=== PATIENT | male | born 1965 | race Caucasian/White ===

== ENCOUNTER 2024-08-04 23:20 | Inpatient (IN) | payer OTHER, SELFPAY ==
[2024-08-04 17:43] VITALS: BMI 28.9
[2024-08-04 17:48] VITALS: BP 152/105
[2024-08-04 18:00] VITALS: BP 139/89
--- NOTE | 2024-08-04 18:03 | ED.GENMED ---
History of Present Illness
<Eleonora Hamilton PA-C - Last Filed: 08/04/24 23:29>
General
Chief Complaint: Abdominal Symptoms
Source: patient
Exam Limitations: none
Time Seen by Provider: 08/04/24 17:57
Nursing documentation reviewed up to this point in time: agreed with
History of Present Illness
History of Present Illness:
59-year-old male with history diverticulitis s/p partial bowel resection who presents the emergency department for evaluation of lower abdominal pain. Patient states symptoms initially started on Friday night. He describes a bloating sensation
which was initially localized around his umbilicus. He now reports a constant pain in his lower abdomen, somewhat more on the right side. Patient states his bowel habits seem slightly different over the past few days including a few days where he
felt constipated although now he reports looser stool. No black stool or bloody stool. He also states that he had a temperature of 100.9/101 F on Friday with chills. Today�patient states his urine was 'rust colored '.
He denies any radiation of pain around to his back. He denies any associated nausea, vomiting. No chest pain or shortness of breath.
Patient has been taking ibuprofen at home with some improvement temporarily.
Patient states that a few years ago he was seen in the emergency department for lower abdominal pain, diagnosed with appendicitis and taken to the operating room where they discovered that he also had diverticulitis and performed a partial bowel
resection.
Past History
<Eleonora Hamilton PA-C - Last Filed: 08/04/24 23:29>
Past History
ED Past Medical History: Other (kidney stone) and Other (Possible cluster headaches)
ED Past Surgical History: Bowel resection
Social History
Personal:
Living: with family
Employment: Employed
Review of Systems
<Eleonora Hamilton PA-C - Last Filed: 08/04/24 23:29>
Review of Systems
Allergies reviewed?: Yes
All Other Systems: ROS reviewed and negative except as documented in HPI and ROS
Phy Exam
<Eleonora Hamilton PA-C - Last Filed: 08/04/24 23:29>
Physical Exam
Physical Exam:
Vitals: Hypertensive on arrival, somewhat improved by my assessment.
General: Patient is well appearing, no acute distress. Nontoxic appearing
Skin: Warm and dry, no rashes or lesions
Head: Normocephalic, atraumatic
Eyes: Sclera nonicteric.
Throat: Protecting airway
Neck: Normal ROM, no cervical spine tenderness, no meningismus
Cardiac: Regular rate and rhythm, no murmurs.
Pulm: Normal respiratory effort, no wheezes, rales, rhonchi heard on exam
.
Abdomen: Abdomen soft. Mild tenderness in suprapubic region without rebound tenderness or guarding. No palpable masses. No CVA tenderness.
Extremities: Warm and well-perfused.
Neuro: AAOx3. Grossly intact.
Psychiatric: Normal affect.
Course
<Eleonora Hamilton PA-C - Last Filed: 08/04/24 23:29>
Orders/Labs/Results
Orders:
Orders
08/04/24 18:15
CT Abd/pel W Iv And Oral Contr Urgent
Comment: hx appendicitis, diverticulitis s/p bowel resectio
Reason For Exam: Lower abdominal pain, +fever
0.9% Sodium Chloride 1000 ml [Nss] 1,000 ml IV BOLUS
Iohexol [Omnipaque] See Protocol PO NOW STA
08/04/24 18:20
Complete Blood Count/With Diff Urgent
Comprehensive Metabolic Panel Urgent
Lactic Acid Q4H
Comment: CANCEL 2nd LACTIC ACID IF 1st LACTIC ACID IS LESS THAN 2
Lipase Urgent
Urinalysis Reflex To Culture Urgent
Date Specimen was Collected: 08/04/24
Time Specimen was Collected: 18:00
Urine Microscopic Reflex Cult Urgent
08/04/24 21:41
LevoFLOXacin 750 MG/150 ML [Levaquin] 750 mg in 150 ml IV NOW
MetroNIDAZOLE 500 MG/100 ML [Flagyl 500 mg] 100 ml IV NOW
08/04/24 22:14
Admit/Transfer Patient As Directed
Co-Sign Provider:
Level of Care: Inpatient admission
Assign to:: Medical/Surgical
Physician / Group: cooper
Diagnosis: divrticulitis
Reason for Hospitalization: Diverticulitis
Expected length of stay greater than two midnights?: Yes
ELOS- Estimated Length of Stay in days: 3
I certify the patient meets the requirements for IP care: Yes
PRN Pain Medication Management As Directed
May give lesser potent ordered pain med per pt: Yes
preference::
Protocol:: Medication orders for pain may be administered in a
manner that supports deferring to patient preference
when the pt is:
- Requesting an ordered lesser potent pain medication.
Least to most potent pain medications are defined
as: acetaminophen < NSAID < tramadol < opioids
(morphine, oxycodone, hydromorphone).
- Requesting a lesser dose of the same medication IF
ORDERED.
- Requesting a less intrusive route of administration
if both routes are prescribed by the provider (PO <
IV).
08/04/24 22:15
Code Status As Directed
Resuscitation Status: Full Code
08/04/24 22:22
SURGICAL CONSULT Routine
Consulting Provider: Khanh Sotelo
Was physician already notified: No
Reason for consult: diverticulitis
08/04/24 22:23
Consult Notification Routine
Specialty to Notify: Surgical
Date consulting provider notified: 08/04/24
Time consulting provider notified: 22:24
Notified:: Service
08/04/24 22:32
DX Deep Vein Thrombosis Video Routine
08/04/24 23:00
Flush (0.9% Sodium Chloride) [Flush (Nss)] See Dose Instructions IV PER PROTOCOL
08/05/24 18:00
Enoxaparin Sodium [Lovenox] 40 mg SC QPM
Abnormal Lab Results
08/04/24
18:20
RBC 4.52 L 10^6/uL
(4.70-6.10)
MCH 31.4 H pg
(27.0-31.0)
Absolute Monos (auto) 1.2 H 10^3/uL
(0.1-0.6)
Lymphocytes % 20.3 L %
(20.5-51.1)
Monocytes % 13.1 H %
(1.7-9.3)
Carbon Dioxide 31 H mmol/L
(22-30)
Glucose 123 H mg/dl
(70-99)
Ur Occult Blood Reflex 1+ A
(Negative)
Urine Urobilinogen 2+ A
(Neg - 1+)
Urine RBC 3-6 A /HPF
(0-2)
Urine Bacteria (Reflex) Few A
(Negative)
Urine Albumin (Reflex) 2+ A
(Neg - Trace)
08/04/24 18:20
08/04/24 18:20
Vital Signs
Initial and Last Documented VS:
Initial Vital Signs
Temp Pulse Resp BP Pulse Ox
98.6 F 81 20 152/105 98
08/04/24 17:48 08/04/24 17:48 08/04/24 17:48 08/04/24 17:48 08/04/24 17:48
Last Documented Vital Signs
Temp Pulse Resp BP Pulse Ox
98.6 F 84 20 139/70 99
08/04/24 17:48 08/04/24 20:00 08/04/24 20:00 08/04/24 20:00 08/04/24 20:00
<Richardson Herrera PA-C - Last Filed: 08/04/24 22:02>
Orders/Labs/Results
Orders:
Orders
08/04/24 18:15
CT Abd/pel W Iv And Oral Contr Urgent
Comment: hx appendicitis, diverticulitis s/p bowel resectio
Reason For Exam: Lower abdominal pain, +fever
0.9% Sodium Chloride 1000 ml [Nss] 1,000 ml IV BOLUS
Iohexol [Omnipaque] See Protocol PO NOW STA
08/04/24 18:20
Complete Blood Count/With Diff Urgent
Comprehensive Metabolic Panel Urgent
Lactic Acid Q4H
Comment: CANCEL 2nd LACTIC ACID IF 1st LACTIC ACID IS LESS THAN 2
Lipase Urgent
Urinalysis Reflex To Culture Urgent
Date Specimen was Collected: 08/04/24
Time Specimen was Collected: 18:00
Urine Microscopic Reflex Cult Urgent
08/04/24 21:41
LevoFLOXacin 750 MG/150 ML [Levaquin] 750 mg in 150 ml IV NOW
MetroNIDAZOLE 500 MG/100 ML [Flagyl 500 mg] 100 ml IV NOW
08/04/24 22:14
Admit/Transfer Patient As Directed
Co-Sign Provider:
Level of Care: Inpatient admission
Assign to:: Medical/Surgical
Physician / Group: cooper
Diagnosis: divrticulitis
Reason for Hospitalization: Diverticulitis
Expected length of stay greater than two midnights?: Yes
ELOS- Estimated Length of Stay in days: 3
I certify the patient meets the requirements for IP care: Yes
PRN Pain Medication Management As Directed
May give lesser potent ordered pain med per pt: Yes
preference::
Protocol:: Medication orders for pain may be administered in a
manner that supports deferring to patient preference
when the pt is:
- Requesting an ordered lesser potent pain medication.
Least to most potent pain medications are defined
as: acetaminophen < NSAID < tramadol < opioids
(morphine, oxycodone, hydromorphone).
- Requesting a lesser dose of the same medication IF
ORDERED.
- Requesting a less intrusive route of administration
if both routes are prescribed by the provider (PO <
IV).
08/04/24 22:15
Code Status As Directed
Resuscitation Status: Full Code
08/04/24 22:22
SURGICAL CONSULT Routine
Consulting Provider: Khanh Sotelo
Was physician already notified: No
Reason for consult: diverticulitis
08/04/24 22:23
Consult Notification Routine
Specialty to Notify: Surgical
Date consulting provider notified: 08/04/24
Time consulting provider notified: 22:24
Notified:: Service
08/04/24 22:32
DX Deep Vein Thrombosis Video Routine
08/04/24 23:00
Flush (0.9% Sodium Chloride) [Flush (Nss)] See Dose Instructions IV PER PROTOCOL
08/05/24 18:00
Enoxaparin Sodium [Lovenox] 40 mg SC QPM
Abnormal Lab Results
08/04/24
18:20
RBC 4.52 L 10^6/uL
(4.70-6.10)
MCH 31.4 H pg
(27.0-31.0)
Absolute Monos (auto) 1.2 H 10^3/uL
(0.1-0.6)
Lymphocytes % 20.3 L %
(20.5-51.1)
Monocytes % 13.1 H %
(1.7-9.3)
Carbon Dioxide 31 H mmol/L
(22-30)
Glucose 123 H mg/dl
(70-99)
Ur Occult Blood Reflex 1+ A
(Negative)
Urine Urobilinogen 2+ A
(Neg - 1+)
Urine RBC 3-6 A /HPF
(0-2)
Urine Bacteria (Reflex) Few A
(Negative)
Urine Albumin (Reflex) 2+ A
(Neg - Trace)
08/04/24 18:20
08/04/24 18:20
Vital Signs
Initial and Last Documented VS:
Initial Vital Signs
Temp Pulse Resp BP Pulse Ox
98.6 F 81 20 152/105 98
08/04/24 17:48 08/04/24 17:48 08/04/24 17:48 08/04/24 17:48 08/04/24 17:48
Last Documented Vital Signs
Temp Pulse Resp BP Pulse Ox
98.6 F 84 20 139/70 99
08/04/24 17:48 08/04/24 20:00 08/04/24 20:00 08/04/24 20:00 08/04/24 20:00
<Eleonora Hamilton PA-C - Last Filed: 08/04/24 23:29>
MDM/Problems Addressed
Differential Diagnosis Includes:
Not limited to: Diverticulitis, cystitis, pyelonephritis, incarcerated hernia, bowel obstruction, anastomotic leak, etc.
MDM/Problems Addressed:
59-year-old male with 3 days of lower abdominal discomfort associated with fever, chills, loose stool. He did notice rust colored urine this morning. Denies associated nausea/vomiting, dysuria. No radiation of pain to back. Patient hypertensive
on arrival, otherwise with stable vital signs. He is afebrile. Physical exam as above. Differential broad although given history of diverticulitis s/p partial bowel resection�could be another acute diverticulitis flare. Feel
cystitis/pyelonephritis less likely. Physical exam less consistent with gallbladder etiology. Will check basic labs, urinalysis, CT scan abdomen/pelvis with p.o. and IV contrast to better evaluation. Patient declines analgesia at this time. Will
give IV fluids.
Update: Labs reviewed. No leukocytosis. Chemistry without clinically significant abnormalities. Lactic acid normal. Urine with few RBCs, 2+ urobilinogen. CT scan pending.
Case signed out to Alberto Herrera PA-C pending CT report.
Chronic conditions affecting care:
History of diverticulitis s/p partial bowel resection
Acute Exacerbation and/or Progression of Chronic Illness:
Acute sigmoid diverticulitis
<Eleonora Hamilton PA-C - Last Filed: 08/04/24 23:29>
*Radiology
Radiology exam reviewed: radiology read reviewed
*Pulse Oximetry
Patient hypoxic: no
*EKG
Interpreted by ED Provider?: NA
*Recycling Collections Driver Interpretation
Rate: Recycling Collections Driver- N/A
*Critical Care Note
Total Time (30-74mins, 75-104mins- exclusive of procedures): Not Applicable
<Richardson Herrera PA-C - Last Filed: 08/04/24 22:02>
Update Note
Update Note:
Took patient in signout, CT shows contained microperforation with diverticulitis. Will admit on IV antibiotics. Ordered Levaquin and metronidazole due to allergies
ED Attending Note
<Eleonora Hamilton PA-C - Last Filed: 08/04/24 23:29>
-
Portions of this chart may have been created with voice recognition software.� Occasional wrong word or��sound alike� substitutions may have occurred due to the inherent limitations of voice recognition software.
Discharge Plan
Departure
Patient Disposition: Admit
Date of Disposition: 08/04/24
Time of Disposition: 22:02
Admit to: Med/Surg
Presentation/result/management discussed w/ accepting MD/DO: Hospitalist
Discharge Problem:
Diverticulitis of colon with perforation
Interventions
Interventions:
*Risk Screen - Suicide Last Done: 08/04/24 17:48
*General Assessment Last Done: 08/04/24 18:25
*Neglect/Abuse Screening Last Done: 08/04/24 18:25
*ED- Fall Risk Assessment Last Done: 08/04/24 18:25
*Nursing Disposition Last Done: 08/04/24 23:13
DK-Qinilb-Rdcsutzvrb Assessment Last Done: 08/04/24 18:25
Discharge Date and Time
Discharge Date/Time: 08/04/24 23:14
[2024-08-04 18:28] LABS: Urine Albumin 2+ (Neg - Trace); Urine Bilirubin Negative (Negative); Urine Character Clear (Clear); Urine Color Yellow; Urine Glucose Negative (Negative); Urine Ketone Negative (Negative); Urine Leukocyte Negative (Negative); Urine Nitrite Negative (Negative); Urine Occult Blood 1+ (Negative); Urine Urobilinogen 2+ (Neg - 1+)
[2024-08-04 18:30] LABS: % Basophils 0.5 % (0-2); % Eosinophils 1.7 % (0-6); % Immature Granulocytes 0.3 % (0-0.5); % Lymphocytes 20.3 % (20.5-51.1); % Monocytes 13.1 % (1.7-9.3); % Neutrophils 64.1 % (42.2-75.2); Absolute Eosinophils 0.2 10^3/uL (0-0.7); Absolute Lymphocytes 1.8 10^3/uL (1.2-3.4); Absolute Monocytes 1.2 10^3/uL (0.1-0.6); Absolute Neutrophils 5.6 10^3/uL (1.4-6.5); Hematocrit 42.1 % (39.0-52.0); Hemoglobin 14.2 g/dL (13.0-18.0); Mean Corp Hgb Conc. 33.7 g/dL (33.0-37.0); Mean Corpuscular Hgb 31.4 pg (27.0-31.0); Mean Corpuscular Volume 93.1 fL (80.0-94.0); Mean Platelet Volume 10.4 fL (7.4-10.4); Nucleated Red Blood Cells % 0 % (-); Platelet Count 189 10^3/uL (130-400); Red Blood Cell Count 4.52 10^6/uL (4.70-6.10); Red Cell Dist. Width 12.5 % (11.5-14.5); White Blood Cell Count 8.8 10^3/uL (4.8-10.8)
[2024-08-04] MEDS: OMNIPAQUE 50 ML PO (18:30)
[2024-08-04] MEDS: NSS 1000 IV (18:30)
[2024-08-04 18:39] LABS: Lactic Acid 1.1 mmol/L (0.7-2.0)
[2024-08-04 18:44] LABS: Urine Calcium Oxalate Crystals Present; Urine Mucus Moderate
[2024-08-04 18:45] LABS: Urine Bacteria Few (Negative); Urine White Cell 0-2 /HPF (0-5)
[2024-08-04 18:47] LABS: ALT (SGPT) 25 U/L (0-50); AST (SGOT) 23 U/L (17-59); Albumin 3.9 g/dl (3.5-5.0); Alkaline Phosphatase 87 U/L (38-126); Blood Urea Nitrogen 19 mg/dl (9-20); Calcium 9.3 mg/dl (8.4-10.2); Carbon Dioxide 31 mmol/L (22-30); Chloride 104 mmol/L (98-107); Estimated Creatinine Clearance 77 ml/min; Glucose 123 mg/dl (70-99); Lipase 53 U/L (23-300); Potassium 3.9 mmol/L (3.5-5.1); Sodium 140 mmol/L (135-145); Total Bilirubin 0.6 mg/dl (0.2-1.3); Total Protein 6.9 g/dl (6.3-8.2); eGFR > 60.00
[2024-08-04 20:00] VITALS: BP 139/70
[2024-08-04] MEDS: FLAGYL 500 MG 100 IV (21:50)
[2024-08-04] MEDS: LEVAQUIN 150 IV (21:51)
--- NOTE | 2024-08-04 21:56 | HPS.HSE ---
Family Physician
-
Family Physician: Fermin Fowler
Chief Complaint
-
right sided abdominal pain
History of Present Illness
59-year-old male with history diverticulitis s/p partial bowel resection who presents the emergency department for evaluation of right sided lower abdominal pain since Friday night. patient stated poor appetite. stated loose stool. denied
constipation, nausea and vomiting. yesterday he felt feverish.his temperature was 100.9. he took Motrin last night and today. No chest pain or shortness of breath.denied MARIE, dizzy or syncope.denied dysuria or hematuria.
CT with diverticulitis. Patient received Levaquin and Flagyl. Admitted for further management.
Medical History
Past Medical History
Past Medical History: Reports Other
Additional Past Medical History:
Headache
Diverticulitis
Past Surgical History: Reports Other
Additional Past Surgical History:
Appendectomy
Partial bowel resection
Social History
Tobacco: Non-smoker
Alcohol: Occasional
Drug: None
Personal:
Living: With Family
Family History
Family History: Not pertinent
Allergies / Home Medications
Allergies reflects when Allergies were last updated in [facility].
Home Medications with original date entered in [facility]
Allergy/Medication List:
Allergies
Allergy/AdvReac Type Severity Reaction Status Date / Time
Cephalosporins Allergy Unknown Verified 08/04/24 17:58
penicillin G Allergy Unknown Verified 08/04/24 17:48
Penicillins Allergy Unknown Verified 08/04/24 17:48
Home Medications
sumatriptan succinate 100 mg tablet (Imitrex) 100 mg PO PRN PRN migraine 02/13/19
verapamil 120 mg tablet,extended release 120 mg PO DAILY 02/13/19
Review of Systems
-
Constitutional: Reports No Symptoms
EENT: Reports No Symptoms
Respiratory: Reports No Symptoms
Cardiac: Reports No Symptoms
Abdomen/GI: Reports Abdominal Pain and Diarrhea
: Reports No Symptoms
Musculoskeletal: Reports No Symptoms
Skin: Reports No Symptoms
Neurological: Reports No Symptoms
Endocrine: Reports No Symptoms
Hematologic/Lymphatic: Reports No Symptoms
Psych: Reports No Symptoms
Physical Exam
Vital Signs
Vital Signs
Temp Pulse Resp BP Pulse Ox
98.6 F 84 20 139/70 99
08/04/24 17:48 08/04/24 20:00 08/04/24 20:00 08/04/24 20:00 08/04/24 20:00
Physical Exam
General: Well Developed, Well Nourished and No Apparent Distress
HEENT: NormoCephalic, Moist mucous membranes and Atraumatic
Respiratory: Clear
Cardiac: S1/S2 and Regular Rhythm; No Murmur or Rub
GI: Soft, Non Tender, Non Distended and Normal Bowel Sounds; No Organomegaly
Rectal: Deferred by Provider
Musculoskeletal: No Clubbing, No Cyanosis and No Edema
Skin: No Rash
Neuro: AO x 3 and Nonfocal/grossly intact
Psych: Calm
Laboratory Results
-
08/04/24 18:20
08/04/24 18:20
Laboratory Results
Lactic Acid Cancelled 08/04/24 22:15
Total Bilirubin 0.6 mg/dl (0.2-1.3) 08/04/24 18:20
AST 23 U/L (17-59) 08/04/24 18:20
ALT 25 U/L (0-50) 08/04/24 18:20
Alkaline Phosphatase 87 U/L (38-126) 08/04/24 18:20
Lipase 53 U/L (23-300) 08/04/24 18:20
Data Reviewed
-
CT Scan: Report Reviewed by me
Lab Data: Labs Reviewed by me
Impression/Plan
-
# Diverticulitis
- CT abdomen pelvis with impression CT findings compatible with diverticulitis involving the sigmoid colon in the left anterior pelvis. There are small foci of contained extraluminal air in this region. No evidence of free intraperitoneal air
elsewhere within the abdomen or pelvis. There is no evidence for a drainable abscess collection.No evidence for bowel obstruction.Small to moderate-sized central hiatal hernia.Cholelithiasis. There are no CT findings to suggest acute cholecystitis.
No evidence of biliary ductal dilation.
-keep patient NPO
-fluids continued for hydration
-iv Levaquin and Flagyl continued
-stool culture ordered
-surgery consulted
#DVT prophylaxis
-scd
#CODE status
-full code
--- NOTE | 2024-08-04 22:07 | W.PN.UPDATE ---
Update Note
Progress Note Update
Pt seen and examined at bedside.
The [employer]IEF [employer] OFFICER's note was reviewed and I agree with the note.
59 yo M with PMH Hx Diverticulitis s/p Resection, Nephrolithiasis, Cluster Headaches, Hx Hypoglycemia presents with lower abdominal pain x Sun night. He was able to go to [employer] and eat kielbasa but symptoms worsened at night into friday
morning. Pain 8/10, crampy, waxing/waning. +bloating. Pain umbilical -> right side. T 100.9 and 101 on Friday. +decreased appetite. Also reports rust colored urine. Endorses loose stools without diarrhea. Denies dizziness/LH, CP, Palps, sob, cough,
n/v, dysuria, calf or leg pain. �
ER course: Presents with V.S.S. WBC 8.8K, Hgb 14.2 g/dL, BUN/Cr 19/1.2, LFTs/Lipase wnl, UA few bact, 0-[address] a/p with IV:�CT findings compatible with diverticulitis involving the sigmoid colon in the left anterior pelvis. There are small foci
of contained extraluminal air in this region. No evidence of free intraperitoneal air elsewhere within the abdomen or pelvis. There is no evidence for a drainable abscess collection. No evidence for bowel obstruction. Small to moderate-sized central
hiatal hernia. Cholelithiasis. There are no CT findings to suggest acute cholecystitis. No evidence of biliary ductal dilation. S/P levaquin/flagyl and 1L NS bolus in ER.
Gen: AAOx3, Comfortable appearing. Follow commands
Cardio: RRR, +S1/S2, No M/R/G
Pulm: CTAB, no w/r/r
Abdomen: Soft, Nondistended. Mild diffuse mid-epigastric, lower and right sided abdominal TTP. No rebound
: No akers, No CVA TTP
Ext: MAEx4, No LE edema, Distal Pulses +2/4 Symmetrically intact
Neuro: No focal deficits
Psych: Normal affect
A/P
Diverticulitis with Microperforation
Hx Hypoglycemia
- Afebrile since admission. Tmax 101 at home. WBC 8.8K
- LFTs wnl. Lipase wnl. UA no evidence of infection.
- CT findings as above
- Continue Levaquin/flagyl
- Continue Dextrose rich fluids in setting of Hx Hypoglycemia. Hypoglycemia protocol
- Stool Cultures
- NPO.
- Surgery consulted
Diet: NPO
DVT Ppx: SCD / Lovenox
Code Status: Full
[2024-08-04 23:30] VITALS: BP 175/93
[2024-08-04 23:41] VITALS: BP 175/93
[2024-08-04 23:45] VITALS: BMI 28.1
[2024-08-05] MEDS: D5/0.9% SODIUM CHLORIDE 1000 IV ×3 (00:08→22:06)
[2024-08-05 00:41] VITALS: BP 165/94
--- NOTE | 2024-08-05 00:54 | PTCARENOTE ---
Patient arrived from the ED via stretcher at approximately 2330. Patient ambulated self from stretcher to bed - gait steady. VSS as documented. Assessment as documented. Patient oriented to room. Bed in lowest position. Call centeno within reach.
[2024-08-05] MEDS: FLAGYL 500 MG 100 IV ×3 (05:25→21:47)
[2024-08-05 07:29] VITALS: BP 164/94
--- NOTE | 2024-08-05 08:53 | W.PN.HOSP.TC ---
Today's Communication/Plan
-
see bold
Assessment / Plan
Assessment / Plan
HPI: 59 yo M with PMH Hx Diverticulitis s/p Resection, Nephrolithiasis, Cluster Headaches, Hx Hypoglycemia presents with lower abdominal pain x Sun night. He was able to go to [employer] and eat kielbasa but symptoms worsened at night into friday
morning. Pain 8/10, crampy, waxing/waning. +bloating. Pain umbilical -> right side. T 100.9 and 101 on Friday. +decreased appetite. Also reports rust colored urine. Endorses loose stools without diarrhea. Denies dizziness/LH, CP, Palps, sob, cough,
n/v, dysuria, calf or leg pain. �
# Acute sigmoid diverticulitis
CT abdomen pelvis with impression CT findings compatible with diverticulitis involving the sigmoid colon in the left anterior pelvis. There are small foci of contained extraluminal air in this region. No evidence of free intraperitoneal air
elsewhere within the abdomen or pelvis. There is no evidence for a drainable abscess collection.No evidence for bowel obstruction.Small to moderate-sized central hiatal hernia.
Appreciate colorectal surgery input, no surgical intervention recommended at this time
Continue IV Levaquin and Flagyl, trial of clear liquids
DVT prophylaxis�subcu Lovenox
Full code
Total time spent to see the patient on the floor, examine the patient, review data and lab results, discuss treatment plan with patient, nursing staff around 35 minutes.
Physical Exam
General: No acute distress
HEENT: Normocephalic, Atraumatic, EOMI, MMM
Respiratory: Clear to Auscultation bilaterally
Cardiac: Normal S1/S2, Regular Rate and Rhythm
GI: Soft, mildly tender at the lower abdomen bilaterally, Nondistended, Normal Bowel Sounds
Extremities: No Clubbing, Cyanosis, or Edema
Neuro: Nonfocal/Grossly Intact
Psych: Calm, Cooperative
Anticipated Discharge: 24 - 48 hours
Subjective/Interval History
-
Date of Service: August 05, 2024
Patient reports feeling better. Abdominal pain resolved. No nausea, no vomiting. No constipation. Has had a few loose bowel movements. No fever, no chest pain, no shortness of breath.
Objective Data
-
Vital Signs:
Vital Signs
Temp Pulse Resp BP Pulse Ox
98.0 F 68 18 164/94 98
08/05/24 07:29 08/05/24 07:29 08/05/24 07:29 08/05/24 07:29 08/05/24 07:29
I&O
08/04/24 08/05/24 08/06/24
06:59 06:59 06:59
Intake Total 850 / 850
Balance 850 / 850
--- NOTE | 2024-08-05 09:16 | CON.CRS ---
Consultation
-
Date/Time Consultation Requested: 08/04/2024, 22:23
Date/Time Consultation Performed: 08/05/2024, 09:15
Requesting Provider: Sandee Mobley
Performing Provider: Praveen Black MD
Reason for Consultation: diverticulitis
Medical History
-
Chief Complaint: abdominal pain
History of Present Illness:
59-year-old male presents to [facility] complaining of abdominal pain. The patient has a history of cecal diverticulitis years ago when he was being operated on for 'appendicitis'. This was at [facility]. He had an episode of right
sided diverticulitis in [address] scan, he was treated with antibiotics. He now returns due to abdominal pain for the past 5 days. He states it started and his bowels became more loose in nature. He has had poor appetite. Denies nausea
or vomiting. He felt fevers and chills yesterday. He also noticed that his urine was turning rust colored. This brought him into the ER.
On admission his WBC is 8.8. He remains afebrile. CT of the abdomen and pelvis shows diverticulitis involving the sigmoid colon. Pelvis. There is a small amount of foci in the extraluminal air in this region. No free intraperitoneal air. No
abscess. Given the above, we have been consulted for further surgical opinion.
Past Medical History
Past Medical History: Other (headaches, diverticulitis)
Past Surgical History: Appendectomy and Other (right sided colectomy secondary to appendectomy (diverticulitis noted during OR))
Social History
Tobacco: Non-Smoker
Alcohol: Occasional
Drug: None
Personal: Single
Family History
Family History: Reviewed & Not Pertinent
Allergies / Home Medications
Allergy/AdvReac Type Severity Reaction Status Date / Time
Cephalosporins Allergy Unknown Verified 08/04/24 17:58
penicillin G Allergy Unknown Verified 08/04/24 17:48
Penicillins Allergy Unknown Verified 08/04/24 17:48
�Medication �Instructions �Recorded �Confirmed �Type
multivitamin 1 tab PO DAILY 08/04/24 08/04/24 History
Review of Systems
-
History Source: Patient
Constitutional: Fever and Chills
Abdomen/GI: Abdominal Pain, Nausea, Vomiting and Diarrhea
A 10 point review of systems was completed, and was negative except as per HPI.
Physical Exam
Vital Signs
Temp 98.0 F 08/05/24 07:29
Pulse 68 08/05/24 07:29
Resp Rate 18 08/05/24 07:29
Blood pressure 164/94 08/05/24 07:29
SaO2 98 08/05/24 07:29
08/04/24 08/05/24 08/06/24
06:59 06:59 06:59
Actual Weight 96.661 kg
Body Mass Index (BMI) 28.1
Lab Results / Allergies
08/04/24 18:20
08/04/24 18:20
WBC 8.8 10^3/uL (4.8-10.8) 08/04/24 18:20
Hgb 14.2 g/dL (13.0-18.0) 08/04/24 18:20
Hct 42.1 % (39.0-52.0) 08/04/24 18:20
Plt Count 189 10^3/uL (130-400) 08/04/24 18:20
Abs Immat Gran (auto) 0.0 10^3/uL (0-0.05) 08/04/24 18:20
Neutrophils % 64.1 % (42.2-75.2) 08/04/24 18:20
Allergy/AdvReac Type Severity Reaction Status Date / Time
Cephalosporins Allergy Unknown Verified 08/04/24 17:58
penicillin G Allergy Unknown Verified 08/04/24 17:48
Penicillins Allergy Unknown Verified 08/04/24 17:48
Physical Exam
General: Well Developed and Well Nourished
GI: Soft and Tender (mild llq)
Neuro: AO x 3
Psych: Calm
Data Reviewed
-
CT Scan: Image Personally Visualized and interpreted, Report Reviewed by me and Discussed with Patient
Labs: Labs Reviewed by me, Discussed with Physician and Discussed with Patient
Old Records: Reviewed
Assessment / Plan
-
Assessment: 59-year-old male with a history of cecal diverticulitis status post resection, now presents with left-sided abdominal pain and found to have acute sigmoid diverticulitis on CT
Plan:
- Continue IV fluids
- Okay for clear liquid diet and fulls later today if tolerates
- Continue IV antibiotics
- No plans for surgery at this time. If worsens will need a colectomy with colostomy creation
- Discussed above with patient
[2024-08-05 15:10] VITALS: BP 167/96
[2024-08-05] MEDS: LOVENOX 40 MG SC (18:40)
[2024-08-05] MEDS: LEVAQUIN 150 IV (22:05)
[2024-08-05 23:23] VITALS: BP 148/79
[2024-08-06] MEDS: FLAGYL 500 MG 100 IV ×2 (05:29→15:15)
[2024-08-06 07:25] VITALS: BP 162/99
--- NOTE | 2024-08-06 08:55 | W.PN.HOSP.TC ---
Today's Communication/Plan
-
Advance to low residue
Discharge on oral antibiotics today if tolerating low residue
Assessment / Plan
Assessment / Plan
HPI: 59 yo M with PMH Hx Diverticulitis s/p Resection, Nephrolithiasis, Cluster Headaches, Hx Hypoglycemia presents with lower abdominal pain x Sun night. He was able to go to [employer] and eat kielbasa but symptoms worsened at night into friday
morning. Pain 8/10, crampy, waxing/waning. +bloating. Pain umbilical -> right side. T 100.9 and 101 on Friday. +decreased appetite. Also reports rust colored urine. Endorses loose stools without diarrhea. Denies dizziness/LH, CP, Palps, sob, cough,
n/v, dysuria, calf or leg pain. �
# Acute sigmoid diverticulitis
CT abdomen pelvis with impression CT findings compatible with diverticulitis involving the sigmoid colon in the left anterior pelvis. There are small foci of contained extraluminal air in this region. No evidence of free intraperitoneal air
elsewhere within the abdomen or pelvis. There is no evidence for a drainable abscess collection.No evidence for bowel obstruction.Small to moderate-sized central hiatal hernia.
Appreciate colorectal surgery input, no surgical intervention recommended at this time
Improving on IV Levaquin and Flagyl, tolerating full liquids
Advance to low residue
Discharge on oral antibiotics today if tolerating low residue
DVT prophylaxis�subcu Lovenox
Full code
Physical Exam
General: No acute distress
HEENT: Normocephalic, Atraumatic, EOMI, MMM
Respiratory: Clear to Auscultation bilaterally
Cardiac: Normal S1/S2, Regular Rate and Rhythm
GI: Soft, mildly tender at the lower abdomen bilaterally, Nondistended, Normal Bowel Sounds
Extremities: No Clubbing, Cyanosis, or Edema
Neuro: Nonfocal/Grossly Intact
Psych: Calm, Cooperative
Anticipated Discharge: Today
Subjective/Interval History
-
Date of Service: August 06, 2024
Patient reports feeling better. No recurrence of abdominal pain. He is tolerating his full liquid diet. No fever, no vomiting. No nausea, no constipation, no diarrhea.
Objective Data
-
Vital Signs:
Vital Signs
Temp Pulse Resp BP Pulse Ox
98.2 F 65 18 162/99 97
08/06/24 07:25 08/06/24 07:25 08/06/24 07:25 08/06/24 07:25 08/06/24 07:25
I&O
08/05/24 08/06/24 08/07/24
06:59 06:59 06:59
Intake Total 850 / 850 100 / 100 1150 / 1150
Balance 850 / 850 100 / 100 1150 / 1150
--- NOTE | 2024-08-06 11:34 | CM ---
CM met with patient at bedside to complete IA. Admitted due to sigmoid diverticulitis with no plan for surgery.
Fermin lives with his and children in a 1 story house with 3 entry steps. Patient was (I) amb and adls [employer]. No history of VN or DME.
Plan: Anticipate discharge to home; No d/c needs anticipated at this time.
Pharmacy: [facility] on [facility] in [place]
PCP: Fermin Fowler
--- NOTE | 2024-08-06 13:02 | W.PN.CRS1 ---
Today's Communication / Plan
-
Low residue diet, possible DC later today if tolerating diet
Assessment/Plan
-
Assessment: 59-year-old male with a history of cecal diverticulitis status post resection, now presents with left-sided abdominal pain and found to have acute sigmoid diverticulitis on CT
Plan:
- Continue IV fluids
-Advance to low residue diet
- Continue IV antibiotics
- No plans for surgery at this time. If worsens will need a colectomy with colostomy creation
- Discussed above with patient
- Okay for discharge later today on low residue diet if he tolerates it. Will need to follow-up with Dr. Black in the office in about 2 weeks. Continue low residue diet for a few weeks. Discussed with patient.
Subjective Data
Subjective Data
Date of Service: August 06, 2024
Patient states he is feeling a lot better today. He has no pain. Denies nausea or vomiting. Tolerating full liquid diet. Has bowel function.
Objective Data
-
Vital Signs
Temp Pulse Resp BP Pulse Ox
98.2 F 65 18 162/99 97
08/06/24 07:25 08/06/24 07:25 08/06/24 07:25 08/06/24 07:25 08/06/24 07:25
Intake & Output
08/05/24 08/06/24 08/07/24
06:59 06:59 06:59
Intake Total 850 / 850 100 / 100 1150 / 1150
Balance 850 / 850 100 / 100 1150 / 1150
Intake:
Oral fluids 0 / 0
IV fluids (Total) 750 / 750 800 / 800
IV piggybacks 100 / 100 100 / 100 350 / 350
Other:
Number of approximated MODERATE 3 2 1
amounts of urine
Number of unmeasured liquid
stools
Rectum 1
Lab Results
08/04/24 18:20
08/04/24 18:20
Physical Exam
-
General: No Acute Distress and AOx3
Abdomen: Soft, Non Distended and Tender (Mild left lower quadrant)
Skin: Warm and Dry
--- NOTE | 2024-08-06 15:00 | W.DCSUMMARY ---
Discharge Summary
Discharge Data
Date of Admission: 08/04/24
Date of Discharge: 08/06/24
-
Pending Results: No
Hospital Course
Discharge diagnosis:
Acute sigmoid diverticulitis
Hiatal hernia
Consults: Colorectal surgery
CT abd/pelvis:
CT findings compatible with diverticulitis involving the sigmoid colon in the left anterior pelvis. There are small foci of contained extraluminal air in this region. No evidence of free intraperitoneal air elsewhere within the abdomen or pelvis.
There is no evidence for a drainable abscess collection.
No evidence for bowel obstruction.
Small to moderate-sized central hiatal hernia.
Hospital course:
59-year-old male with a past medical history of cecal diverticulitis status post ileocolic resection was admitted for acute sigmoid diverticulitis. CT of the abdomen and pelvis shows diverticulitis involving the sigmoid colon, with a small foci of
contained extraluminal air in this region. Patient was treated with IV Flagyl and levofloxacin. He was seen in conjunction with colorectal surgery, who recommended conservative management. He received bowel rest, and slowly advanced to a low
residue diet. He tolerated his diet, and did not have any abdominal pain. He is medically stable for discharge on oral Flagyl and levofloxacin to complete a 7-day course. He needs to follow-up with his primary care doctor in 1 week, and
colorectal surgery in the office in 2 weeks.
Disposition: Home self-care
Discharge planning: Required 37 min
Discharge Plan
-
Patient Disposition: Home (Routine Discharge)
Discharge Diagnosis/Procedures: Acute sigmoid diverticulitis
Condition: Good
Diet: Low Fiber
Activity: As tolerated
Driving Restrictions: As prior to admission
Activity Restrictions/Additional Instructions:
Follow-up with your primary care doctor in 1 week, and colorectal surgery in the office in 2 weeks.
Referrals:
Kang Black MD [Active] - in two weeks
Malcolm,Fermin T., DO [Family Provider] - in one week
Prescriptions:
New
metronidazole 500 mg tablet
500 mg PO Q8H 5 Days Qty: 15 0RF
levofloxacin 750 mg tablet
750 mg PO DAILY 5 Days Qty: 5 0RF
Continued
multivitamin Tablet
1 tab PO DAILY
Discharge Orders:
Discharge Patient (As Directed); Ordered 08/06/24
Ordered By: Jared Santos
Discharge Date and Time
Discharge Date/Time: 08/06/24 16:35
Print Language: LATVIAN
[2024-08-06] MEDS: LEVAQUIN 750 MG PO (15:15)
[2024-08-06 15:21] VITALS: BP 155/101
== END 2024-08-06 16:35 | disposition home or self-care (01) | DRG 392 ==
LOC: 2 NORTH 23:20
PROVIDERS: Physician Assistant; ADMITTING PHYSICIAN Internal Medicine; ATTENDING PHYSICIAN Family Medicine; CONSULT PHYSICIAN Surgery; FAMILY PHYSICIAN Family Medicine
DX: K57.20 Diverticulitis of large intestine with perforation and abscess without bleeding (principal); K44.9 Diaphragmatic hernia without obstruction or gangrene; Z88.0 Allergy status to penicillin; Z88.1 Allergy status to other antibiotic agents; K80.20 Calculus of gallbladder without cholecystitis without obstruction
CPT/HCPCS: 74177; 80053; 81003; 81015; 83605; 83690; 85025; 87045; 87046; 87427; 87798; 89055; 93005; 96365; 96366; 96375; 99285; Q9967